=== PATIENT | female | born 1985 | race Two or more races ===

== ENCOUNTER → 2023-07-05 17:39 | Outpatient (REF) | payer OTHER, SELFPAY | LOC: HWRAD 17:39 | PROVIDERS: ATTENDING PHYSICIAN Internal Medicine; FAMILY PHYSICIAN Nurse Practitioner | DX: M25.512 Pain in left shoulder (principal) | CPT/HCPCS: 73030 ==

== ENCOUNTER → 2023-08-07 15:07 | Outpatient (REF) | payer OTHER, SELFPAY | LOC: PAVMRI 15:07 | PROVIDERS: ATTENDING PHYSICIAN Internal Medicine; FAMILY PHYSICIAN Nurse Practitioner | DX: M25.512 Pain in left shoulder (principal) | CPT/HCPCS: 73221 ==

== ENCOUNTER → 2023-10-01 09:35 | Outpatient (REF) | payer OTHER, SELFPAY | LOC: WDC 09:35 | PROVIDERS: ATTENDING PHYSICIAN Nurse Practitioner | DX: N63.32 Unspecified lump in axillary tail of the left breast (principal); N64.4 Mastodynia | CPT/HCPCS: 76642; 77062; 77066 ==

== ENCOUNTER 2023-11-05 05:18 | Emergency (ER) | payer OTHER, SELFPAY ==
[2023-11-05 05:18] VITALS: BMI 28.2
[2023-11-05 05:24] VITALS: BP 122/72
--- NOTE | 2023-11-05 05:36 | ED.GENMED ---
History of Present Illness
<Jong Ballesteros MD - Last Filed: 11/05/23 10:44>
General
Chief Complaint: Headache
Source: patient
Exam Limitations: none
Time Seen by Provider: 11/05/23 06:08
Nursing documentation reviewed up to this point in time: agreed with
History of Present Illness
History of Present Illness:
Patient with history of migraine headache since age of 17, who has had multiple imaging studies as an outpatient without any abnormal findings, presents to ED secondary to persistent headache over the past 6 days at home, despite taking her
medications. Patient states that recently, her headache has become more frequent despite medication adjustment. As such, an outpatient MRI brain is being arranged by her neurologist at [facility]. However, patient does state that her
headache currently is her typical migraine headache. Denies recent illness. Denies recent change in diet. Denies sick contacts. Denies fever or chills. Denies neck pain. Denies sore throat. Denies difficulty with speech. Denies loss of
sensation or weakness. Denies blurred vision. Last night, patient took Celebrex as well as Tylenol without improvement in symptoms. Patient does admit to photophobia along with multiple vomiting episodes at home, unable to take her medications
or eat.
Past History
<MEI Bray - Last Filed: 11/09/23 22:58>
Past History
ED Past Medical History: Other (migraine; ovarian cysts)
ED Past Surgical History: None
Patient has exhibited threatening behavior?: No
Social History
Personal:
Living: with family
Review of Systems
<Jong Ballesteros MD - Last Filed: 11/05/23 10:44>
Review of Systems
Allergies reviewed?: Yes
All Other Systems: ROS reviewed and negative except as documented in HPI and ROS
Constitutional: Reports no symptoms; Denies fever
EENT: Reports no symptoms
Respiratory: Reports no symptoms
Cardiac: Reports no symptoms
ABD/GI: Reports nausea and vomiting; Denies abdominal pain
Musculoskeletal: Reports no symptoms
Skin: Reports no symptoms
Neurological: Reports headache; Denies dizzy, weakness or numbness
Phy Exam
<Jong Ballesteros MD - Last Filed: 11/05/23 10:44>
Physical Exam
Physical Exam:
Physical Exam
General: mild distress, not acutely ill. afebrile
Head: nc/at. eomi. no nystagmus
Neck: supple. no meningeal signs. normal posterior pharynx. negative Kernig's and Brudzinski sign
Heart: s1/s2 regular rate and rhythm, no murmur. equal radial pulses.
Lungs: no acute respiratory distress. clear bilaterally
Abdomen: normal bowel sounds. not tender.
Neuro: alert and oriented. no focal neurological deficits. normal speech.
Skin: no rash
Psychiatric: well kept. interactive and cooperative
Extremities: no edema. no calf tenderness.
<MEI Bray - Last Filed: 11/09/23 22:58>
SHIRA Score
Is patient's age greater than or equal to 65 years: No
Does patient have 3 or more CAD risk factors?: No
Does patient have known CAD: No
Has patient used ASA in past seven days?: No
Has patient had severe angina in past 24 hrs?: No
Are patient's cardiac markers elevated?: No
Are there ST changes greater 0.05mm?: No
Result score?: 0
Course
<Jong Ballesteros MD - Last Filed: 11/05/23 10:44>
Orders/Labs/Results
Orders:
Orders
11/05/23 06:20
0.9% Sodium Chloride 1000 ml [Nss] 1,000 ml IV BOLUS
Diphenhydramine [Benadryl] 12.5 mg IV NOW STA
Ketorolac [Toradol] 15 mg IV NOW STA
Metoclopramide [Reglan] 10 mg IV NOW STA
11/05/23 06:31
Complete Blood Count/With Diff Urgent
Comprehensive Metabolic Panel Urgent
Magnesium Urgent
11/05/23 07:46
Dexamethasone Sod Phosphate [Decadron] 10 mg IV NOW STA
Ondansetron Injectable [Zofran] 4 mg IV NOW STA
11/05/23 07:47
0.9% Sodium Chloride 500 ml [Nss] 500 ml IV BOLUS
11/05/23 07:50
Magnesium Sulfate 1 grams 0.9% Sodium Chloride 100 ml [Nss] 100 ml IV NOW
Abnormal Lab Results
11/05/23
06:31
RBC 3.85 L 10^6/uL
(4.20-5.40)
Hct 34.1 L %
(37.0-47.0)
MCH 31.4 H pg
(27.0-31.0)
Absolute Lymphs (auto) 1.1 L 10^3/uL
(1.2-3.4)
Glucose 109 H mg/dl
(70-99)
11/05/23 06:31
11/05/23 06:31
Vital Signs
Initial and Last Documented VS:
Initial Vital Signs
Temp Pulse Resp BP Pulse Ox
97.4 F 70 24 122/72 96
11/05/23 05:24 11/05/23 05:24 11/05/23 05:24 11/05/23 05:24 11/05/23 05:24
Last Documented Vital Signs
Temp Pulse Resp BP Pulse Ox
97.4 F 84 18 100/63 99
11/05/23 05:24 11/05/23 10:00 11/05/23 10:00 11/05/23 10:00 11/05/23 10:00
<MEI Bray - Last Filed: 11/09/23 22:58>
Orders/Labs/Results
Orders:
Orders
11/05/23 06:20
0.9% Sodium Chloride 1000 ml [Nss] 1,000 ml IV BOLUS
Diphenhydramine [Benadryl] 12.5 mg IV NOW STA
Ketorolac [Toradol] 15 mg IV NOW STA
Metoclopramide [Reglan] 10 mg IV NOW STA
11/05/23 06:31
Complete Blood Count/With Diff Urgent
Comprehensive Metabolic Panel Urgent
Magnesium Urgent
11/05/23 07:46
Dexamethasone Sod Phosphate [Decadron] 10 mg IV NOW STA
Ondansetron Injectable [Zofran] 4 mg IV NOW STA
11/05/23 07:47
0.9% Sodium Chloride 500 ml [Nss] 500 ml IV BOLUS
11/05/23 07:50
Magnesium Sulfate 1 grams 0.9% Sodium Chloride 100 ml [Nss] 100 ml IV NOW
Abnormal Lab Results
11/05/23
06:31
RBC 3.85 L 10^6/uL
(4.20-5.40)
Hct 34.1 L %
(37.0-47.0)
MCH 31.4 H pg
(27.0-31.0)
Absolute Lymphs (auto) 1.1 L 10^3/uL
(1.2-3.4)
Glucose 109 H mg/dl
(70-99)
11/05/23 06:31
11/05/23 06:31
Vital Signs
Initial and Last Documented VS:
Initial Vital Signs
Temp Pulse Resp BP Pulse Ox
97.4 F 70 24 122/72 96
11/05/23 05:24 11/05/23 05:24 11/05/23 05:24 11/05/23 05:24 11/05/23 05:24
Last Documented Vital Signs
Temp Pulse Resp BP Pulse Ox
97.4 F 84 18 100/63 99
11/05/23 05:24 11/05/23 10:00 11/05/23 10:00 11/05/23 10:00 11/05/23 10:00
<Jong Ballesteros MD - Last Filed: 11/05/23 10:44>
MDM/Problems Addressed
MDM/Problems Addressed:
Patient reports significant improvement in symptoms after treatment. Patient remains afebrile, hemodynamically stable, and neurologically intact during observation. At this time, patient feels comfortable going home, with an outpatient follow-up
with her neurologist at [facility]. Advised to return to ED with worsening symptoms.
<MEI Bray - Last Filed: 11/09/23 22:58>
*Radiology
Radiology exam reviewed: other
*Pulse Oximetry
Patient hypoxic: no
*EKG
Interpreted by ED Provider?: NA
*Concrete Spreader Interpretation
Rate: Concrete Spreader- N/A
*Critical Care Note
Total Time (30-74mins, 75-104mins- exclusive of procedures): Not Applicable
ED Attending Note
<MEI Bray - Last Filed: 11/09/23 22:58>
-
Portions of this chart may have been created with voice recognition software.� Occasional wrong word or��sound alike� substitutions may have occurred due to the inherent limitations of voice recognition software.
Discharge Plan
Departure
Patient Disposition: Home (Routine Discharge)
Date of Disposition: 11/05/23
Time of Disposition: 10:44
Patient with high blood pressure during this ER visit?: Yes
Condition: Good
Discharge Problem:
Headache
Instructions: Headache, Adult (DC)
Referrals:
Malka Mancia CRNP [Family Provider] -
Activity Restrictions/Additional Instructions:
As discussed, please follow-up with your primary care physician and/or neurologist for further evaluation and treatment. Please return to ED with worsening symptoms fever/worsening headache/vomiting,
Interventions
Interventions:
*Risk Screen - Suicide Last Done: 11/05/23 05:24
*General Assessment Last Done: 11/05/23 10:50
*Neglect/Abuse Screening Last Done: 11/05/23 05:24
ED- Fall Risk Assessment Last Done: 11/05/23 08:20
*ED COVID-19 Vaccine History Last Done: 11/05/23 06:35
*Nursing Disposition Last Done: 11/05/23 10:50
ED- Neurological Assessment Last Done: 11/05/23 06:35
Discharge Date and Time
Discharge Date/Time: 11/05/23 10:51
Print Language: SRI LANKAN
[2023-11-05] MEDS: REGLAN 10 MG IV (06:29)
[2023-11-05] MEDS: NSS 1000 IV (06:29)
[2023-11-05] MEDS: BENADRYL 12.5 MG IV (06:29)
[2023-11-05] MEDS: TORADOL 15 MG IV (06:30)
[2023-11-05 06:37] VITALS: BP 111/60
[2023-11-05 06:45] LABS: % Basophils 0.4 % (0-2); % Eosinophils 3.5 % (0-6); % Immature Granulocytes 0.2 % (0-0.5); % Lymphocytes 21.6 % (20.5-51.1); % Monocytes 4.3 % (1.7-9.3); Absolute Eosinophils 0.2 10^3/uL (0-0.7); Absolute Lymphocytes 1.1 10^3/uL (1.2-3.4); Absolute Monocytes 0.2 10^3/uL (0.1-0.6); Absolute Neutrophils 3.6 10^3/uL (1.4-6.5); Hematocrit 34.1 % (37.0-47.0); Hemoglobin 12.1 g/dL (12.0-16.0); Mean Corp Hgb Conc. 35.5 g/dL (33.0-37.0); Mean Corpuscular Hgb 31.4 pg (27.0-31.0); Mean Corpuscular Volume 88.6 fL (81.0-99.0); Mean Platelet Volume 9.4 fL (7.4-10.4); Nucleated Red Blood Cells % 0 %; Platelet Count 238 10^3/uL (130-400); Red Blood Cell Count 3.85 10^6/uL (4.20-5.40); Red Cell Dist. Width 11.6 % (11.5-14.5); White Blood Cell Count 5.1 10^3/uL (4.8-10.8)
[2023-11-05 06:56] LABS: ALT (SGPT) 19 U/L (0-35); AST (SGOT) 23 U/L (14-36); Albumin 4.3 g/dl (3.5-5.0); Alkaline Phosphatase 53 U/L (38-126); Blood Urea Nitrogen 14 mg/dl (7-17); Calcium 9.1 mg/dl (8.4-10.2); Carbon Dioxide 24 mmol/L (22-30); Chloride 107 mmol/L (98-107); Estimated Creatinine Clearance 99 ml/min; Glucose 109 mg/dl (70-99); Magnesium 1.8 mg/dl (1.6-2.3); Potassium 4.1 mmol/L (3.5-5.1); Sodium 137 mmol/L (135-145); Total Protein 6.6 g/dl (6.3-8.2); eGFR > 60.00
[2023-11-05] MEDS: ZOFRAN 4 MG IV (07:59)
[2023-11-05] MEDS: DECADRON 10 MG IV (07:59)
[2023-11-05] MEDS: MAGNESIUM SULFATE 102 GRAMS IV (07:59)
[2023-11-05 08:00] VITALS: BP 97/73
[2023-11-05] MEDS: NSS 500 IV (08:00)
[2023-11-05 10:00] VITALS: BP 100/63
== END 2023-11-05 10:51 | disposition home or self-care (01) ==
LOC: EMR 05:18
PROVIDERS: EMERGENCY PHYSICIAN Emergency Medicine; FAMILY PHYSICIAN Nurse Practitioner
DX: R51.9 Headache, unspecified (principal)
CPT/HCPCS: 99283; 96365; 96375; 80053; 83735; 85025

== ENCOUNTER → 2023-12-11 19:47 | Outpatient (REF) | payer OTHER, SELFPAY | LOC: MRI 19:47 | PROVIDERS: ATTENDING PHYSICIAN Psychiatry & Neurology Neurology; FAMILY PHYSICIAN Nurse Practitioner | DX: R41.89 Other symptoms and signs involving cognitive functions and awareness (principal) | CPT/HCPCS: 70553; A9575 ==

== ENCOUNTER → 2023-12-13 16:27 | Outpatient (REF) | payer OTHER, SELFPAY | LOC: PAVMRI 16:27 | PROVIDERS: ATTENDING PHYSICIAN Nurse Practitioner | DX: M54.12 Radiculopathy, cervical region (principal); M54.16 Radiculopathy, lumbar region | CPT/HCPCS: 72141; 72148 ==

== ENCOUNTER → 2024-01-14 08:10 | Outpatient (REF) | payer OTHER, SELFPAY | LOC: RAD 08:10 | PROVIDERS: ATTENDING PHYSICIAN Nurse Practitioner | DX: E04.1 Nontoxic single thyroid nodule (principal) | CPT/HCPCS: 76536 ==

== ENCOUNTER → 2024-10-30 14:44 | Outpatient (REF) | payer OTHER, SELFPAY | LOC: RAD 14:44 | PROVIDERS: ATTENDING PHYSICIAN Nurse Practitioner Adult Health | DX: R10.2 Pelvic and perineal pain (principal); R10.30 Lower abdominal pain, unspecified | CPT/HCPCS: 76830; 76856 ==

== ENCOUNTER → 2024-12-16 07:21 | Outpatient (REF) | payer OTHER, SELFPAY | LOC: HWRAD 07:21 | PROVIDERS: ATTENDING PHYSICIAN Nurse Practitioner Adult Health | DX: N83.202 Unspecified ovarian cyst, left side (principal); E04.2 Nontoxic multinodular goiter | CPT/HCPCS: 76536; 76830; 76856 ==

== ENCOUNTER → 2024-12-31 07:28 | Outpatient (REF) | payer OTHER, SELFPAY | LOC: HWWDC 07:28 | PROVIDERS: ATTENDING PHYSICIAN Nurse Practitioner Adult Health | DX: Z12.31 Encounter for screening mammogram for malignant neoplasm of breast (principal) | CPT/HCPCS: 77063; 77067 ==